=== PATIENT | male | born 1965 | race Caucasian/White ===

== ENCOUNTER 2017-01-10 07:03 | Day surgery (SDC) | payer BC ==
[2017-01-10] MEDS ORDERED: ONDANSETRON HCL INJ/PF 4 MG/2 ML SDV ONE (07:16)
[2017-01-10] MEDS ORDERED: GLYCOPYRROLATE INJ 0.4 MG/2 ML VIAL ONE (07:16)
[2017-01-10] MEDS ORDERED: NALOXONE HCL INJ/PF 0.4 MG/1 ML SDV ONE (07:16)
[2017-01-10] MEDS ORDERED: EPINEPHRINE INJ 1 MG/10 ML DISP.SYRIN ONE (07:17)
[2017-01-10] MEDS ORDERED: FLUMAZENIL INJ 0.5 MG/5 ML VIAL IV ONE (07:17)
[2017-01-10] MEDS ORDERED: GLUCAGON,HUMAN RECOMB 1 MG INJ ONE (07:17)
[2017-01-10] MEDS: MIDAZOLAM 2 MG/2 ML INJ ONE ×4 (08:05→08:17)
[2017-01-10] MEDS: FENTANYL CITRATE INJ/PF 100 MCG/2 ML AMPUL ONE ×2 (08:07→08:15)
--- NOTE | 2017-01-10 08:48 | PDOC DISCHARGE SUMMARY ---
Discharge Summary (SDC) - Discharge Final Diagnosis: Hx of colon polyps Date of Surgery: 01/10/17 Discharge Date: 01/10/17 Condition: Good Treatment or Instructions: [place] [id number] POST ENDOSCOPY DISCHARGE INSTRUCTIONS 1. Diet: Start clear liquids that a regular diet as tolerated. 2. Resume all preoperative medications. All oral anticoagulants and aspirins can be resumed 24 hours after procedure. 3. If a polypectomy was performed some bleeding per rectum may occur. This should stop within 3 days. If not, please contact the office. 4. If you had a colonoscopy you may experience some bloating and delayed return of normal bowel function for several days, your regular bowel movement pattern should resume within a week. 5. Please contact [facility] at to make an appointment with Dr. Timmons for 1 to 3 weeks following procedure. 6. If you have any questions or concerns regarding your care,treatment plan or follow up, please contact our office. 7. Per clinical guidelines we recommend you undergo a repeat colonoscopy in 5 years. Discharge Diet: As Tolerated Discharge Activity: Activity As Tolerated Home Care Assistance: None Needed Report the Following to Your Physician Immediately: Shortness of Breath, Increase in Pain, Fever over 101 Degrees
--- NOTE | 2017-01-10 09:23 | OPERATIVE REPORT E ---
Operative Report NAME: DARIEN FLOWERS : 1965 AGE: 51Y DATE OF SURGERY: 01/10/2017 ROOM: PREOPERATIVE DIAGNOSIS: Personal history of colon polyps. POSTOPERATIVE DIAGNOSIS: Normal colon; small internal hemorrhoids. PROCEDURE: Total colonoscopy to the cecum, photo documentation. SURGEON: MAGNUS GURROLA M.D. ANESTHESIA: IV sedation. COMPLICATIONS: None. ESTIMATED BLOOD LOSS: None. SUMMARY OF PROCEDURE: Patient was taken from the holding area to the endoscopy suite fifth floor where IV sedation was induced. Monitoring devices were hooked up. Patient was placed in the left lateral decubitus position. A surgical plan and surgical timeout were conducted. A rectal exam was performed. Sphincter tone was excellent. There were internal hemorrhoids, but non-thrombosed. The flexible pediatric colonoscope was advanced to the anorectal canal all the way to the cecum. This was an excellent study on a well-prepped bowel. Transillumination of the anterior abdominal wall and visualization of the cecal anatomy confirmed cecal intubation. The scope was withdrawn through the length of the colon, checking the mucosa carefully. There was no evidence of tumor, stricture, bleeding, polyp, or diverticuloses. There were several small internal hemorrhoids only. This was an excellent study on a well-prepped bowel. Scope was withdrawn from the patient's anus. He tolerated the procedure well. There were no postprocedure complications. Per surveillance guidelines, patient would be an appropriate candidate for followup colonoscopy in 5 years. DICTATING PHYSICIAN: MAGNUS GURROLA M.D. [id number] PHY#: [id number] ID: [id number] JOB#: [id number] ACCT: [id number] cc:MAGNUS GURROLA M.D. >
[2017-01-10 09:43] VITALS: BP 110/71
== END 2017-01-10 09:40 | disposition home or self-care (01) ==
LOC: END 07:03
PROVIDERS: ATTEND Surgery
PROC: 0DJD8ZZ Inspection of Lower Intestinal Tract, Via Natural or Artificial Opening Endoscopic (ICD-10-PCS; principal; 2017-01-10 07:30)
DX: K64.8 Other hemorrhoids (principal); Z86.010 Personal history of colon polyps; F32.9 Major depressive disorder, single episode, unspecified; Z79.899 Other long term (current) drug therapy; Z87.891 Personal history of nicotine dependence
CPT/HCPCS: 45378; J2250; J3010; J0171; J1610; J2310; J2405; J3490

== ENCOUNTER → 2019-02-12 | Outpatient (CLI) | payer BC ==
--- NOTE | 2019-02-12 09:33 | RADIOLOGY REPORT (SQ) ---
EXAM DESCRIPTION: MRI CERVICAL SPINE WITHOUT COMPLETED DATE/TIME: 02/12/2019 8:25 am REASON FOR STUDY: OTHER CERVICAL DISC DEGENERATION, UNSP CERVICAL REGION (M50.30) M50.30 OTHER CERV ICAL DISC DEGENERATION, UNSP CERVICAL REGIO COMPARISON: None. TECHNIQUE: Sagittal and Axial imaging includes T1, T2, STIR and gradient echo sequences. LIMITATIONS: None. FINDINGS: ALIGNMENT: Normal. VERTEBRAE: Intact. BONE MARROW: Normal. No marrow replacement or reactive changes. DISCS: Diffuse decreased T2 weighted intervertebral disc signal. Very mild disc space loss of height at C5-6 HARDWARE: None in the spine. CORD AND BASE OF BRAIN: Normal in size and signal intensity. SOFT TISSUES: No soft tissue masses. C1-C2: No significant spinal stenosis. C2-C3: No significant spinal stenosis or exit foraminal stenosis. C3-C4: Minimal posterior disc bulge and bony spurring is present. No central stenosis. No significa nt foraminal narrowing. C4-C5: Minimal posterior disc bulging is present. No central or foraminal stenosis. C5-C6: Mild diffuse posterior disc bulge. No central or right foraminal narrowing. Mild left forami nal narrowing from facet and uncovertebral hypertrophy C6-C7: Tiny central annular tear with posterior disc bulge. No significant central or foraminal encr oachment. This is best shown on axial T2 series 6, image 22/30 C7-T1: No significant spinal stenosis or exit foraminal stenosis. UPPER THORACIC: Incompletely imaged. No significant spinal stenosis or exit foraminal stenosis. OTHER: No other significant finding. IMPRESSION: Very mild degenerative disc changes. No significant central or foraminal encroachment. TECHNICAL DOCUMENTATION: JOB ID: [id number]- All Rights Reserved Reading location - IP/workstation name: [email or web address]
== END ==
LOC: RAD 07:38
PROVIDERS: ATTEND Nurse Practitioner Acute Care
DX: M50.323 Other cervical disc degeneration at C6-C7 level (principal)
CPT/HCPCS: 72141

== ENCOUNTER 2020-07-07 07:00 | Day surgery (SDC) | payer BC ==
[2020-07-01 09:51] LABS: HEMATOCRIT 40.7 % (37.9-51.0); HEMOGLOBIN 14.4 g/dL (13.5-17.0); MEAN CORPUSCULAR HGB CONC 35.5 g/dL (32.0-36.0); MEAN CORPUSCULAR VOLUME 87 fl (80-97); PLATELET COUNT 228 10^3/uL (150-450); RED BLOOD COUNT 4.65 10^6/uL (4.35-5.55); RED CELL DISTRIBUTION WIDTH 13.5 % (11.5-14.0); WHITE BLOOD COUNT 4.1 10^3/uL (4.0-10.5)
[2020-07-07] MEDS ORDERED: LIDOCAINE 0.5% INJ-PF (5 MG/ML) 50 ML SDV ONE (07:18)
[2020-07-07] MEDS ORDERED: PROPOFOL INJ 200 MG/20 ML VIAL IV ONE (07:18)
--- NOTE | 2020-07-07 07:55 | Discharge Summary ---
Discharge Summary (SDC) - Discharge Final Diagnosis: Mild gastritis and duodenitis Date of Surgery: 07/07/20 Discharge Date: 07/07/20 Condition: Good Treatment or Instructions: Resume preoperative medication, diet, activity. Follow-up with [facility], Dr. Timmons, in 2 weeks Referrals: AMANDA GUTHRIE, [employer]PER [Primary Care Provider] - Discharge Diet: As Tolerated Discharge Activity: Activity As Tolerated Home Care Assistance: None Needed Report the Following to Your Physician Immediately: Shortness of Breath, Increase in Pain, Fever over 101 Degrees
--- NOTE | 2020-07-07 07:59 | Operative Report ---
Operative Report DATE OF SURGERY: 07/07/20 PREOPERATIVE DIAGNOSIS: 1. Abdominal pain. 2. Weight loss unexplained POSTOPERATIVE DIAGNOSIS: 1. Mild gastritis. 2. Mild duodenitis OPERATION: 1. Esophagogastroduodenoscopy. 2. Cold forceps mucosal biopsies of gastric antrum and first portion of the duodenum SURGEON: MAGNUS TIMMONS ANESTHESIA: LMAC TISSUE REMOVED OR ALTERED: Mucosal biopsies COMPLICATIONS: None ESTIMATED BLOOD LOSS: Scant INTRAOPERATIVE FINDINGS: See below PROCEDURE: Patient is taken from the preoperative area to the main endoscopy suite where monitoring devices were attached, and LMAC anesthesia was induced. He was placed in the left lateral semirecumbent position. Oral mouthpiece inserted. Surgical plan surgical timeout were conducted. The flexible upper endoscope was advanced to the oropharynx, down the esophagus, through the stomach and into the first and second portion of the duodenum. Patient tolerated procedure well. There is mild to tinnitus but no evidence of ulcer stricture polyp or bleeding in the duodenum. A cold forceps biopsy was performed of the duodenal mucosa. It was sent to pathology labeled duodenal mucosa. The pylorus was inspected carefully. There was no evidence of tumor stricture or ulcer. There was mild streaking gastritis of the antrum. Photos taken and a random biopsy of the antrum performed with a cold forceps device, specimen sent for CLOtest as well as histologic analysis. There was no evidence of gastric varices. The scope was retroflexed in the stomach, and there was no significant hiatal hernia. The scope was straightened and brought back to the GE junction. No significant pathology of the Z-line. Photos taken. The scope was withdrawn with the patient's oropharynx. He tolerated procedure well was taken to the recovery area in stable condition. Discharge instructions: Resume preoperative medications, diet, activity. Follow-up with [facility], Dr. Timmons in 1 to 2 weeks
[2020-07-07 08:31] VITALS: BP 119/86
--- OUTSIDE RECORDS SUMMARY | 2020-07-08 14:55 | XMS REPORT ---
:1965 Author Organization [facility] [address] [place] [address] Care Team Providers Name Role Phone Nicole HOLMAN, MS, Mrs Fernandez Attending Clinician Marcela JOSE, Dr Shaikh Attending Clinician Aisha PAK BA, Mrs Raines Unavailable Nicole HOLMAN, MS, Mrs Fernandez Unavailable Allergies, Adverse Reactions, Alerts This patient has no known allergies or adverse reactions. Medications Ordered Filled Start Stop Current Ordering Indication Dosage Frequency Signature Comments Components Medication Medication Date Date Medication? Clinician (SIG) Name Name Fluoxetine Yes Take 1 HCl 10 MG capsule (10 mg) by mouth daily Butalbital- Yes 1 capsule Aspirin-Caf orally feine every 4 50-325-40 hours as MG needed Cetirizine- Yes TAKE 1 Pseudoephed TABLET BY rine 5-120 MOUTH MG DAILY Tolterodine Yes Take 1 Tartrate 4 capsule (4 MG mg) by mouth daily Coenzyme Yes Take 1 Q10 capsule (Ubidecaren (100 mg) one) 100 MG by mouth daily with a meal Amphetamine Yes take once -Dextroamph daily etamine 5 MG Tadalafil 5 2019- No Take 1 MG 06-16 tablet (5 04:00 mg) by :00 mouth daily as needed Diclofenac 2019- No 1 patch Epolamine 06-16 transderma 1.3 % 04:00 lly 2 :00 times per day to most painful area Atorvastati 2019- No Take 1 n Calcium 06-16 tablet (40 40 MG 04:00 mg) by :00 mouth daily Tolterodine 2019- No Take 1 Tartrate 2 03-19 capsule (2 MG 07:00 mg) by :00 mouth daily Cefdinir 2020- No Take 1 300 MG 10-27 capsule 08:00 (300 mg) :00 by mouth every 12 hours for 7 days Problems Condition Condition Condition Status Onset Resolution Last Treatin g Comments Name Details Category Date Date Treatment Clinician Date Osteoarthri Osteoarthri Diagnosis Active Epworth , tis of knee tis of knee Olu Anxiety Anxiety Diagnosis Active Olu Leonard Urinary Urinary Diagnosis Active Aisha, incontinenc incontinenc Olu e e Neck pain Neck pain Diagnosis Active Olu Leonard Major Major Diagnosis Active Epworth, depression, depression, Olu single single episode episode Blood Blood Diagnosis Active Aisha, glucose glucose Olu abnormal abnormal Postprocedu Postprocedu Diagnosis Active Aisha , ral state ral state Olu finding finding Obesity Obesity Diagnosis Active AishaOlu lyons General General Diagnosis Active Aisha, symptom symptom Olu Frequent Frequent Diagnosis Active Aisha, headache headache Olu Hyperlipide Hyperlipide Diagnosis Active Epworth , prabhu prabhu Olu Chronic Chronic Diagnosis Active Epworth, ethmoidal ethmoidal Olu sinusitis sinusitis Degeneratio Degeneratio Diagnosis Active Drober g, n of n of cervical cervical interverteb interverteb ral disc ral disc Benign Benign Diagnosis Active Droberg, prostatic prostatic hyperplasia hyperplasia Overactive Overactive Diagnosis Active Drocynthia, bladder bladder Risk of Risk of Diagnosis Active Drocynthia, exposure to exposure to communicabl communicabl e disease e disease Viral disease Venereal Venereal Diagnosis Active Droberg, disease disease screening screening Dyslipidemi Dyslipidemi Diagnosis Active Drober g, a a Disturbance Disturbance Diagnosis Active Drober g, of of attention attention Neoplastic Neoplastic Diagnosis Complet 2019-11-15 Ronn rg, disease disease ed 00:00:00 Otitis Otitis Diagnosis Complet 2019-11-15 Nicole, media media ed 00:00:00 Procedures Procedure Date / Time Performed Performing Clinician Adeliac e Documentation of current 2020-02-09 00:00:00 DroMelina marieecca medications (procedure) Documentation of current 2019-12-10 00:00:00 DroMelina marieecca medications (procedure) Depression screening using PHQ-9 2019-11-12 07:00:00 Erma Rivera (Patient Health Questionnaire 9) score Assessment using generalized 2019-11-12 07:00:00 Jasmyn Rivera a anxiety disorder 7 item score Assessment for risk of 2019-11-12 07:00:00 Rebecca Rivera cardiovascular disease Laboratory data interpretation 2019-11-12 07:00:00 Leonila Rivera cca Documentation of current 2019-11-12 00:00:00 Nicole medications (procedure) Screening for malignant neoplasm of 2019-10-29 08:00:00 Rebecca Rivera prostate Documentation of current 2019-10-28 00:00:00 Nicole medications (procedure) Documentation of current 2019-09-03 00:00:00 Nicole medications (procedure) Total colonoscopy (procedure) 2016-10-27 05:00:00 Katelyn Rivera Results Test Description Test Time Test Comments Text Results Atomic Results Result Comments Herpes simplex virus 1+2 Ab.IgM 2020-02-10 15:32:00 Test Item Value Reference Range Comments Herpes simplex virus 1+2 Ab.IgM (test code = 20543-8) <0.91 Rati o 0-0 Iajzhmnydzhpxu7456-90-44 21:38:00 Test Item Value Reference Range Comments Interpretation (test code = 303393) Note PDF [id number] 21:27:00 Test Item Value Reference Range Comments PDF Image (test code = 864486) . Bilirubin.glucuronidated+Bilirubin.albumin todwp7871-40-26 20:03:00 Test Item Value Reference Range Comments Bilirubin.glucuronidated+Bilirubin.albumin bound 0.12 mg/dL 0-0 (test code = 1968-7) Cholesterol.total/Cholesterol.in [id number] 20:03:00 Test Item Value Reference Range Comments Cholesterol.total/Cholesterol.in HDL (test code = 2.6 ratio 0-0 9830-1) Cholesterol.in [id number] 20:03:00 Test Item Value Reference Range Comments Cholesterol.in LDL (test code = 67300-7) 81 mg/dL 0-0 Cholesterol.in [id number] 20:03:00 Test Item Value Reference Range Comments Cholesterol.in VLDL (test code = 81948-4) 14 mg/dL 0-0 Cholesterol.in [id number] 20:03:00 Test Item Value Reference Range Comments Cholesterol.in HDL (test code = 2085-9) 60 mg/dL 0-0 Nnizudnlyofo1333-41-94 20:03:00 Test Item Value Reference Range Comments Triglyceride (test code = 2571-8) 69 mg/dL 0-0 Nsxwnxymptp1766-58-99 20:03:00 Test Item Value Reference Range Comments Cholesterol (test code = 2093-3) 155 mg/dL 0-0 LABORATORY HCJCZHH8799-09-02 20:03:00LABORATORY COMMENT 2019-12-22 Not available [facility] [address] [id number] lselarryildbezxm9331-10-67 19:51:00 Test Item Value Reference Range Comments Alanine aminotransferase (test code = 1742-6) 33 IU/L 0- 0 Aspartate rskblgordscxvpgj8201-50-71 19:50:00 Test Item Value Reference Range Comments Aspartate aminotransferase (test code = 1920-8) 32 IU/L 0-0 Alkaline oyjckahxuge1835-98-42 19:49:00 Test Item Value Reference Range Comments Alkaline phosphatase (test code = 6768-6) 64 IU/L 0-0 Bnblovf1793-05-31 19:49:00 Test Item Value Reference Range Comments Albumin (test code = 1751-7) 4.5 g/dL 0-0 Ysuinqd8820-90-23 19:49:00 Test Item Value Reference Range Comments Protein (test code = 2885-2) 6.5 g/dL 0-0 Gmjhcpjom4374-83-68 19:20:00 Test Item Value Reference Range Comments Bilirubin (test code = 1975-2) 0.3 mg/dL 0-0 Thmixfwndqvcry8062-82-11 01:05:00 Test Item Value Reference Range Comments Interpretation (test code = 511841) Note PDF Pcyfm5626-00-21 00:46:00 Test Item Value Reference Range Comments PDF Image (test code = 597037) . Izslrgvqisi8926-40-42 23:39:00 Test Item Value Reference Range Comments Thyrotropin (test code = 53603-6) 1.260 uIU/mL 0-0 Prostate specific [id number] 23:33:00 Test Item Value Reference Range Comments Prostate specific Ag (test code = 2857-1) 0.8 ng/mL 0-0 Albumin/Ylzfoipo7836-40-38 22:09:00 Test Item Value Reference Range Comments Albumin/Globulin (test code = 1759-0) 1.8 0-0 Msoeoezz7327-69-81 22:09:00 Test Item Value Reference Range Comments Globulin (test code = 64931-2) 2.5 g/dL 0-0 Olftqms4829-14-28 22:09:00 Test Item Value Reference Range Comments Albumin (test code = 1751-7) 4.5 g/dL 0-0 Ukifqil0864-15-41 22:09:00 Test Item Value Reference Range Comments Protein (test code = 2885-2) 7.0 g/dL 0-0 Carbon acmcspi3434-17-89 22:09:00 Test Item Value Reference Range Comments Carbon dioxide (test code = 2028-9) 22 mmol/L 0-0 Wltltiqa7100-46-94 22:09:00 Test Item Value Reference Range Comments Chloride (test code = 2075-0) 100 mmol/L 0-0 Mlbnbgkmg9782-90-03 22:09:00 Test Item Value Reference Range Comments Potassium (test code = 2823-3) 4.2 mmol/L 0-0 Twyegg8884-08-34 22:09:00 Test Item Value Reference Range Comments Sodium (test code = 2951-2) 139 mmol/L 0-0 Urea nitrogen/Afwlpdvwci5550-77-03 22:09:00 Test Item Value Reference Range Comments Urea nitrogen/Creatinine (test code = 3097-3) 9 0- 0 Glomerular filtration rate/1.73 sq M.predicted.ruc2102-44-27 22:09:00 Test Item Value Reference Range Comments Glomerular filtration rate/1.73 sq 90 mL/min/1.73 0-0 M.predicted.addie (test code = 52854-7) Glomerular filtration rate/1.73 sq M.predicted.kua2298-60-39 22:09:00 Test Item Value Reference Range Comments Glomerular filtration rate/1.73 sq 78 mL/min/1.73 0-0 M.predicted.non (test code = 38661-9) Ioeeruvlpf7460-27-95 22:09:00 Test Item Value Reference Range Comments Creatinine (test code = 2160-0) 1.08 mg/dL 0-0 Urea tztjzsvx4767-40-54 22:09:00 Test Item Value Reference Range Comments Urea nitrogen (test code = 3094-0) 10 mg/dL 0-0 Tjhgdyd3877-38-88 22:09:00 Test Item Value Reference Range Comments Glucose (test code = 2345-7) 84 mg/dL 0-0 Cholesterol.in LDL/Cholesterol.in [id number] 22:09:00 Test Item Value Reference Range Comments Cholesterol.in LDL/Cholesterol.in HDL (test code = 3.4 ratio 0-0 73027-3) Cholesterol.in VAM6826-35-74 22:09:00 Test Item Value Reference Range Comments Cholesterol.in LDL (test code = 00076-7) 228 mg/dL 0-0 Cholesterol.in [id number] 22:09:00 Test Item Value Reference Range Comments Cholesterol.in VLDL (test code = 89805-0) 21 mg/dL 0-0 Cholesterol.in VHB1647-38-10 22:09:00 Test Item Value Reference Range Comments Cholesterol.in HDL (test code = 2085-9) 68 mg/dL 0-0 Hjxdskyiiaod1265-18-35 22:09:00 Test Item Value Reference Range Comments Triglyceride (test code = 2571-8) 107 mg/dL 0-0 Kehbqucmaph9293-41-96 22:09:00 Test Item Value Reference Range Comments Cholesterol (test code = 2093-3) 317 mg/dL 0-0 Alanine qsqiixjjrynelctw5464-84-93 22:09:00 Test Item Value Reference Range Comments Alanine aminotransferase (test code = 1742-6) 20 IU/L 0- 0 Aspartate rixxyjmclrzifopj3525-57-36 22:09:00 Test Item Value Reference Range Comments Aspartate aminotransferase (test code = 1920-8) 24 IU/L 0-0 Alkaline ferpximtlpt6824-45-29 22:09:00 Test Item Value Reference Range Comments Alkaline phosphatase (test code = 6768-6) 68 IU/L 0-0 Oknzpjbzb4738-88-21 22:09:00 Test Item Value Reference Range Comments Bilirubin (test code = 1975-2) 0.4 mg/dL 0-0 LABORATORY KZQFRSX6406-93-83 22:09:00LABORATORY COMMENT 2019-10-[address] Final [facility] [address] [id number] 22:06:00 Test Item Value Reference Range Comments Calcium (test code = 10741-3) 9.4 mg/dL 0-0 Hemoglobin A1c/Hemoglobin.nyzsx7939-16-99 19:08:00 Test Item Value Reference Range Comments Hemoglobin A1c/Hemoglobin.total (test code = 4548-4) 5.5 % 0-0 GRANULOCYTES.OTOSPJTV4384-31-39 17:23:00 Test Item Value Reference Range Comments GRANULOCYTES.IMMATURE (test code = 07259-3) 0.0 x10E3/uL 0-0 GRANULOCYTES.IMMATURE/100 ICFUQAJTWH4719-78-02 17:23:00 Test Item Value Reference Range Comments GRANULOCYTES.IMMATURE/100 LEUKOCYTES (test code = 0 % 0-0 68385-7) Zuvplkiaf1059-60-67 17:23:00 Test Item Value Reference Range Comments Basophils (test code = 704-7) 0.0 x10E3/uL 0-0 Beluzphkphw6850-79-70 17:23:00 Test Item Value Reference Range Comments Eosinophils (test code = 711-2) 0.2 x10E3/uL 0-0 Fxvxiqhdy4256-72-90 17:23:00 Test Item Value Reference Range Comments Monocytes (test code = 742-7) 0.3 x10E3/uL 0-0 Dvglrgsmurd9287-76-07 17:23:00 Test Item Value Reference Range Comments Lymphocytes (test code = 731-0) 1.7 x10E3/uL 0-0 Bkveaguwtii9210-25-74 17:23:00 Test Item Value Reference Range Comments Neutrophils (test code = 751-8) 4.1 x10E3/uL 0-0 Basophils/100 jrotydqzmh5972-50-34 17:23:00 Test Item Value Reference Range Comments Basophils/100 leukocytes (test code = 706-2) 1 % 0-0 Eosinophils/100 cggasixzdk4166-69-07 17:23:00 Test Item Value Reference Range Comments Eosinophils/100 leukocytes (test code = 713-8) 2 % 0 -0 Monocytes/100 mzpxlzfcnm5963-43-48 17:23:00 Test Item Value Reference Range Comments Monocytes/100 leukocytes (test code = 5905-5) 5 % 0- 0 Lymphocytes/100 hmbkoozpvj9955-23-80 17:23:00 Test Item Value Reference Range Comments Lymphocytes/100 leukocytes (test code = 736-9) 27 % 0 -0 Neutrophils/100 hdzgrigiqw2401-71-25 17:23:00 Test Item Value Reference Range Comments Neutrophils/100 leukocytes (test code = 770-8) 65 % 0 -0 Yvhmvyupy3675-52-47 17:23:00 Test Item Value Reference Range Comments Platelets (test code = 777-3) 255 x10E3/uL 0-0 Erythrocyte distribution xhemf4065-90-60 17:23:00 Test Item Value Reference Range Comments Erythrocyte distribution width (test code = 788-0) 13.1 % 0-0 Erythrocyte mean corpuscular hemoglobin wkojjsjjcj8938-43-88 17:23:00 Test Item Value Reference Range Comments Erythrocyte mean corpuscular hemoglobin concentrat 35.0 g/dL 0-0 (test code = 786-4) Erythrocyte mean corpuscular kxkvzuksop3849-15-58 17:23:00 Test Item Value Reference Range Comments Erythrocyte mean corpuscular hemoglobin (test code = 30.4 pg 0-0 785-6) Erythrocyte mean corpuscular rzovop7170-78-49 17:23:00 Test Item Value Reference Range Comments Erythrocyte mean corpuscular volume (test code = 87 fL 0-0 787-2) Jldaolxxxe2466-16-70 17:23:00 Test Item Value Reference Range Comments Hematocrit (test code = 4544-3) 40.9 % 0-0 Rihaljikoo3054-69-33 17:23:00 Test Item Value Reference Range Comments Hemoglobin (test code = 718-7) 14.3 g/dL 0-0 Ipezgjqohxve9432-74-04 17:23:00 Test Item Value Reference Range Comments Erythrocytes (test code = 789-8) 4.71 x10E6/uL 0-0 Kvafbgkaoi0614-05-42 17:23:00 Test Item Value Reference Range Comments Leukocytes (test code = 6690-2) 6.4 x10E3/uL 0-0 Cnltumnxes8958-96-38 17:23:00Morphology 2019-10-28 Not [address] [facility] [id number].nucleated/100 zdbxtayouy9974-62-81 17:23:00Erythrocytes.nucleated/100 leukocytes 2019-10-28 Not available [facility] [id number] Immature Hqzxk7136-35-27 17:23:00Immature Cells 2019-10-28 Not available [facility] [address] [place], [place] [id number] [Mass/volume] in Urine by Test nlaeh0755-07-13 08:23:00 Test Item Value Reference Range Comments Urobilinogen [Mass/volume] in Urine by Test strip 0 neg (test code = 26360-8) Specific gravity of Urine by Test rfyzb6121-51-12 08:23:00 Test Item Value Reference Range Comments Specific gravity of Urine by Test strip (test code 1.000 neg = 5811-5) Protein [Presence] in Urine by Test ffeuk1229-58-24 08:23:00 Test Item Value Reference Range Comments Protein [Presence] in Urine by Test strip (test code 15 pos = 30596-3) Nitrite [Presence] in Urine by Test jdpwo3559-49-63 08:23:00 Test Item Value Reference Range Comments Nitrite [Presence] in Urine by Test strip (test code = 0 neg 5802-4) pH of Urine by Test keica9514-99-34 08:23:00 Test Item Value Reference Range Comments pH of Urine by Test strip (test code = 5803-2) 7.5 [pH] Ketones [Presence] in Urine by Test gzvtc7744-38-45 08:23:00 Test Item Value Reference Range Comments Ketones [Presence] in Urine by Test strip (test code = 5 pos 2514-8) Glucose [Presence] in Urine by Test nfpza1969-39-86 08:23:00 Test Item Value Reference Range Comments Glucose [Presence] in Urine by Test strip (test code = 0 neg 55423-6) Hemoglobin [Presence] in Urine by Test [id number] 08:23:00 Test Item Value Reference Range Comments Hemoglobin [Presence] in Urine by Test strip (test 0 neg code = 5794-3) Leukocyte esterase [Presence] in Urine by Test eatxj8075-94-38 08:23:00 Test Item Value Reference Range Comments Leukocyte esterase [Presence] in Urine by Test strip 0 neg (test code = 5799-2) Clarity of [id number] 08:23:00 Test Item Value Reference Range Comments Clarity of Urine (test code = 65687-7) 0 clear Color of ncfsd3365-34-89 08:23:00 Test Item Value Reference Range Comments Color of urine (test code = 5778-6) 0 pale TSH (Thyrotropin)2019-10-28 07:57:00 Test Item Value Reference Range Comments TSH (Thyrotropin) (test code = 3016-3) 1.260 Assessments Condition Name Status Diagnosis Date Treating Clinici an Venereal disease screening Active 2020-02-12 11:32:39 Risk of exposure to communicable Active 2020-02-12 11:2 7:17 disease Benign prostatic hyperplasia Active 2019-10-28 20:16:36 Overactive bladder Active 2019-11-12 15:13:11 Disturbance of attention Active 2019-12-14 15:31:49 Disturbance of attention Active 2019-12-14 15:31:49 Dyslipidemia Active 2019-11-12 15:13:06 Anxiety Active 2019-11-16 01:48:58 Overactive bladder Active 2019-11-12 15:13:11 Major depression, single episode Active 2019-11-16 01:4 8:49 Benign prostatic hyperplasia Active 2019-10-28 20:16:36 Hyperlipidemia Active 2019-10-28 16:43:13 Overactive bladder Active 2019-11-12 15:13:11 Major depression, single episode Active 2019-11-16 01:4 8:49 Blood glucose abnormal Active 2019-10-28 16:43:08 Chronic ethmoidal sinusitis Active 2019-09-06 01:23:05 Otitis media Active 2019-11-16 01:49:05 Frequent headache Active 2019-01-29 20:51:06 Neck pain Active 2019-01-29 20:50:53 Neoplastic disease Active 2019-11-16 01:49:14 Degeneration of cervical intervertebral Active 20:53:12 disc Encounters Start End Encounter Admission Attending Care Care Encounter Date/Time Date/Time Type Type Clinicians Facility Department ID 2020-02-16 2020-02-16 Not Margaret Rivera [id number] 00:00:00 00:00:00 specified Rebecca Valle [facility] [place] 2020-02-16 2020-02-09 2020-02-09 Margaret Norman [id number] 00:00:00 00:00:00 disease Rebecca Caldwelleret screening [facility] 2020-02-09 2019-12-22 2019-12-22 Not Marcela [facility] [id number] 00:00:00 00:00:00 [facility]-12-[facility] 2019-12-10 2019-12-10 Benign Drocynthia, [facility] [id number] 00:00:00 00:00:00 prostatic [facility] hyperplasia [facility] 2019-12-10 2019-11-12 2019-11-12 Anxiety Drocynthia, [facility] [id number] 00:00:00 00:00:00 [facility] 2019-11-12 2019-10-28 2019-10-28 Benign Drocynthia, [facility] [id number] 00:00:00 00:00:00 prostatic [facility] 2019-10-28 2019-09-03 2019-09-03 Chronic Drocynthia, [facility] [id number] 00:00:00 00:00:00 ethmoidal [facility] sinusitis [facility] 2019-09-03 2019-07-22 2019-07-22 Not Nicole, [facility] [id number] 00:00:00 00:00:00 specified [facility] 2019-07-22 2019-01-29 2019-01-29 Frequent Nicole, [facility] [id number] 00:00:00 00:00:00 headache [facility] 2019-01-29 Immunizations Ordered Immunization Filled Immunization Date Status Commen ts Refusal Reason Name Name vaccine Unknown Cancelled Assessment and Plan Assessment or Activity Date Comments HSV 1 and 2-Spec Ab, IgG w/Rfx 2020-02-17 Tests Pen ding: HSV 1 and 2-Spec Ab, IgG w/Rfx Expected r esults on: 2020-02-17 Care plan 2020-02-09 Date of Encounter: 2 Plan: Screening today for HSV1/2Will call with results and rec sCounseled todayRT PRNMEDICATI ONS: FLUoxetine HCl 10 MG Oral Capsu le 1 capsule (10 mg) orally daily Valnbgthnx-Zwyqddg-I affeine 50-325-40 MG Oral Capsule 1 ca psule orally every 4 hours as nee ded ZyrTEC-D Allergy & Congestion 5-120 MG Oral Tablet Extended Rele ase 12 Hour TAKE 1 TABLET BY MOUTH DA KARISSA Tolterodine Tartrate ER 4 MG Ora l Capsule Extended Release 24 Hour Take 1 capsule (4 mg) by mo [facility] daily Co Q-10 100 MG Oral Capsule Take 1 capsule (100 mg) by mouth da karissa with a meal Adderall XR 5 MG Ora l Capsule Extended Release 24 Hour take once daily Herpes simplex virus 1+2 IgM Ab 2020-02-09 Tests Pe nding: Herpes simplex virus [Units/volume] in Serum by 1+2 IgM Ab [U nits/volume] in Serum by Immunoassay Immunoassay Expected results on: 2020-02-09 Care plan 2019-12-10 Date of Encounter: Plan: Urology referral John pérez Marie HernándezDx: BPH , prior urolift procedure, now with symptoms of OAB.Refill Adderall XR 5mg to take PRNMEDICATIONS: Cial is 5 MG Oral Tablet 1 tablet (5 m g) orally daily as needed FLUoxetine HCl 10 MG Oral Capsule 1 capsule (1 0 mg) orally daily Detrol LA 2 MG Oral Capsule Extended Release 24 Hour Take 1 capsule (2 mg) by [facility] daily (stop date: 11/12/2019) Sandra terodine Tartrate ER 4 MG Oral Capsule Extended Release 24 Hour Take 1 capsu le (4 mg) by mouth daily Atorvast atin Calcium 40 MG Oral Tablet Take 1 tablet (40 mg) by mouth daily Co Q- 10 100 MG Oral Capsule Take 1 capsu le (100 mg) by mouth daily with a m eal Adderall XR 5 MG Oral Capsule Exte nded Release 24 Hour take once daily Care plan 2019-11-12 Date of Encounter: Plan: Trial of low dose ad derall XR 5mg daily #30 and return in one month for follow up.Increase d etrol to 4mg dailyStart moderate dose statin therapy along with C oQ10 100mg dailyRepeat Lipids a nd LFTs in 6 weeksGoal for 50% re duction in LDL.>50% of todays v isit involved counseling of avelino t disease process, risk factor s and creating plan of care.MEDICAT IONS: Tolterodine Tartrate ER 4 MG Ora l Capsule Extended Release 24 Hour Take 1 capsule (4 mg) by mo uth daily Atorvastatin Calcium 40 MG Oral Tablet Take 1 tablet (40 mg) by mouth daily Co Q-10 100 MG Oral Capsule Take 1 capsule (100 mg) by mouth daily with a meal Ad derall XR 5 MG Oral Capsule Extende d Release 24 Hour take once daily Lipid Panel and Chol/HDL Ratio 2019-12-22 Tests Pen ding: Lipid Panel and Chol/HDL Ratio Expec iker results on: 2019-12-22 Hepatic function 2000 panel - Serum 2019-12-22 Test s Pending: Hepatic function 2000 or Plasma panel - Serum or Callie sma Expected results on: Care plan 2019-10-28 Date of Encounter: Plan: Labs todayRTC 2 week s for review.Avoid bladder stimulants, no fluid intake at leas t 2 hours prior to bed. Detrol for O ABRTC 2 weeks for follow upMEDICATIONS : FLUoxetine HCl 10 MG Oral Capsule 1 capsule (10 mg) orally daily Detrol LA 2 MG Oral Capsule Extended Rel ease 24 Hour Take 1 capsule (2 mg) by mouth daily Care plan 2019-09-03 Date of Encounter: Plan: Antibiotics as outli elsi. Referral to ENT- MEDICATIONS: Ce fdinir 300 MG Oral Capsule Take 1 capsule (300 mg) by mouth every 12 ho urs for 7 days Care plan 2019-01-29 Date of Encounter: Plan: Referral for MRI Cestrella sanon.Will follow with referral to [facility] [place].REFERRALS: On [facility] via FaxCon tinue to monitor the scalp lesion. Ap pears benign.MEDICATIONS: Flector 1.3 % Transdermal Patch 1 patch transdermally 2 time s per day to most painful area Care plan 2019-10-21 Date of Encounter: Addendum date 10-21 source: Provider: Encounter type changed from Office Visit - [id number] (SNOMED-CT) to Evaluation and barbara wise of established outpatie nt in office or other outpatient fac ility (procedur - [id number] (SNOMED-CT) .
Patient follow-up planned and 2019-11-12 Scheduled Appointment for Follow-Up scheduled Visit on 2019-11-12 at 16:[address] Rebecca Rivera AXEL HOLMAN, MS at [facility], [address] [place], [place], Critical access hospital, [facility] Karla Phone: [phone] Adult depression screening assessment 2019-10-28 Ca re goals and future scheduled procedures: Adult de pression screening assessment Adult depression screening assessment 2019-09-03 Ca re goals and future scheduled procedures: Adult de pression screening assessment Adult depression screening assessment 2019-07-22 Ca re goals and future scheduled procedures: Adult de pression screening assessment Comprehensive metabolic 2000 panel - 2019-10-28 Myah ts Pending: Comprehensive Serum or Plasma metabolic 2000 panel - Serum or Plasma Expected resu lts on: 2019-10-28 CBC W Auto Differential panel - Blood 2019-10-28 Te sts Pending: CBC W Auto Differential panel - Blood Expected results on: Lipid Panel With LDL/HDL Ratio 2019-10-28 Tests Pen ding: Lipid Panel With LDL/HDL Ratio Expect ed results on: 2019-10-28 Thyrotropin [Units/volume] in Serum 2019-10-28 Test s Pending: Thyrotropin or Plasma by Detection limit <= 0.005 [U nits/volume] in Serum or Plasma by mIU/L Detection limit <= 0 .005 mIU/L Expected results on: 2019-10-28 Hemoglobin A1c/Hemoglobin.total in 2019-10-28 Tests Pending: Hemoglobin Blood A1c/Hemoglobin.total in Blood Expected results on: 2019-10-28 Prostate specific Ag [Mass/volume] in 2019-10-[address] Pending: Prostate specific Ag Serum or Plasma [Mass/volume] in Ser um or Plasma Expected results on: 2019-10-28 Social History Smoking Status Start Date Stop Date Non-smoker 2020-02-17 17:09:23 Social History Observation Description Sex Male Vital Signs Vital Name Observation Time Observation Value Comments Respiratory rate 2020-02-09 07:58:00 12 /min Pulse 2020-02-09 07:58:00 65 /min Systolic BP 2020-02-09 07:58:00 128 mm[Hg] Diastolic BP 2020-02-09 07:58:00 85 mm[Hg] Temperature 2020-02-09 07:58:00 36.11 Nancy Height 2020-02-09 07:58:00 172.72 cm O2 Saturation 2020-02-09 07:58:00 97 % Weight 2020-02-09 07:58:00 95.44 kg BMI (Body Mass Index) 2020-02-09 07:57:59 31.99 kg/m2 Height 2019-12-10 08:57:00 172.72 cm Weight 2019-12-10 08:57:00 94.35 kg BMI (Body Mass Index) 2019-12-10 08:56:59 31.63 kg/m2 Respiratory rate 2019-11-12 07:59:00 12 /min Pulse 2019-11-12 07:59:00 68 /min Systolic BP 2019-11-12 07:59:00 130 mm[Hg] Diastolic BP 2019-11-12 07:59:00 74 mm[Hg] Height 2019-11-12 07:59:00 172.72 cm O2 Saturation 2019-11-12 07:59:00 98 % Weight 2019-11-12 07:59:00 94.53 kg BMI (Body Mass Index) 2019-11-12 07:58:59 31.69 kg/m2 Pulse 2019-10-28 08:08:00 71 /min Systolic BP 2019-10-28 08:08:00 126 mm[Hg] Diastolic BP 2019-10-28 08:08:00 88 mm[Hg] Height 2019-10-28 08:08:00 172.72 cm O2 Saturation 2019-10-28 08:08:00 94 % Weight 2019-10-28 08:08:00 95.62 kg BMI (Body Mass Index) 2019-10-28 08:07:59 32.05 kg/m2 Pulse 2019-09-03 12:20:00 80 /min Systolic BP 2019-09-03 12:20:00 130 mm[Hg] Diastolic BP 2019-09-03 12:20:00 80 mm[Hg] Temperature 2019-09-03 12:20:00 36.39 Nancy Height 2019-09-03 12:20:00 172.72 cm O2 Saturation 2019-09-03 12:20:00 96 % Weight 2019-09-03 12:20:00 92.08 kg BMI (Body Mass Index) 2019-09-03 12:19:59 30.87 kg/m2 Pulse 2019-01-29 13:17:00 75 /min Systolic BP 2019-01-29 13:17:00 132 mm[Hg] Diastolic BP 2019-01-29 13:17:00 78 mm[Hg] Height 2019-01-29 13:17:00 172.72 cm O2 Saturation 2019-01-29 13:17:00 95 % Weight 2019-01-29 13:17:00 92.08 kg BMI (Body Mass Index) 2019-01-29 13:16:59 30.87 kg/m2
== END 2020-07-07 08:30 | disposition home or self-care (01) ==
LOC: END 07:00
PROVIDERS: ATTEND Surgery
DX: K29.80 Duodenitis without bleeding (principal); K29.50 Unspecified chronic gastritis without bleeding; R64 Cachexia; Z03.818 Encounter for observation for suspected exposure to other biological agents ruled out; Z87.891 Personal history of nicotine dependence; Z86.010 Personal history of colon polyps; F32.9 Major depressive disorder, single episode, unspecified; R12 Heartburn; Z79.899 Other long term (current) drug therapy; K64.8 Other hemorrhoids; Z87.11 Personal history of peptic ulcer disease
CPT/HCPCS: 43239; 36415; 85027; 88342 ×2; 88305 ×2; 00731; U0003; J3490; J2704; C9803; 731; 87635